=== PATIENT | female | born 1950 | race Caucasian/White ===

== ENCOUNTER 2021-06-27 13:43 | Inpatient (IN) | payer OTHER, SELFPAY ==
[~2021-06-27] VITALS: Ht 149.9 cm; Wt 66.7 kg
[2021-06-27 14:00] VITALS: BP_SYST 132
[2021-06-27] MEDS ORDERED: HYDR-4038 PO (16:29)
[2021-06-27] MEDS ORDERED: GABA-529 PO (16:29)
[2021-06-27] MEDS ORDERED: SSNOVOLOG SUBCUT (16:29)
[2021-06-27] MEDS ORDERED: ATOR40TA68 PO (16:29)
[2021-06-27] MEDS ORDERED: POTA10TA PO (16:29)
[2021-06-27] MEDS ORDERED: BENA1TAB19 PO (16:29)
[2021-06-27] MEDS ORDERED: FURO-149 PO (16:29)
[2021-06-27] MEDS ORDERED: ASA81 PO (16:29)
[2021-06-27] MEDS ORDERED: TICA90TA PO (16:29)
[2021-06-27] MEDS ORDERED: CARV12.548 PO (16:29)
[2021-06-27] MEDS ORDERED: METF-518 PO (16:29)
[2021-06-27] MEDS ORDERED: INSU300I SQ (16:29)
[2021-06-27] MEDS ORDERED: PRO40 PO (16:29)
[2021-06-27] MEDS ORDERED: NACL 0.9% 1,000 ML IV SCH (17:00)
[2021-06-27] MEDS ORDERED: DEXTROSE 50% JECT 50 ML DISP.SYRIN IVP PRN (17:00)
[2021-06-27] MEDS ORDERED: PANTOPRAZOLE SODIUM 40 MG/VIAL (PROTONIX) IVP ONE (19:15)
[2021-06-27 19:17] LABS: BASOPHILS % (AUTO) 0.9 % (0.0-2.0); EOSINOPHILS # (AUTO) 0.2 K/uL (0.0-0.4); EOSINOPHILS % (AUTO) 3.6 % (0.0-4.0); HEMATOCRIT 27.9 % (36-48); HEMOGLOBIN 9.5 g/dL (12.0-16.0); LYMPHOCYTES # (AUTO) 0.9 K/uL (1.0-5.5); LYMPHOCYTES % (AUTO) 16.7 % (20.5-51.5); MEAN CORPUSCULAR HEMOGLOBIN 29 pg (27-31); MEAN CORPUSCULAR HGB CONC 34 % (32-36); MEAN CORPUSCULAR VOLUME 83 fL (79.0-98.0); MONOCYTES # (AUTO) 0.5 K/uL (0.0-1.0); MONOCYTES % (AUTO) 9.8 % (1.7-9.3); NEUTROPHILS # (AUTO) 3.6 K/uL (1.8-7.7); PLATELET COUNT (AUTO) 327 K/uL (130-430); RED BLOOD CELL COUNT(AUTO) 3.35 MIL/uL (4.2-6.2); RED CELL DISTRIBUTION WIDTH 20.1 % (9.0-15.0); WHITE BLOOD COUNT (AUTO) 5.2 K/uL (4.8-10.8)
[2021-06-27 20:01] LABS: TOTAL IRON BIND. CAPACITY 293 ug/dL (250-450)
[2021-06-27 20:14] LABS: ALANINE AMINOTRANSFERASE 21 U/L (12-78); ALBUMIN 3.1 g/dL (3.4-4.8); ANION GAP 10 (5-15); ASPARTATE AMINOTRANSFERASE 19 U/L (10-37); CALCIUM 8.8 mg/dL (8.4-11.0); CHLORIDE 99 mmol/L (98-107); CREATININE 1.24 mg/dL (0.55-1.30); GLUCOSE 172 mg/dL (70-99); POTASSIUM 3.6 mmol/L (3.5-5.1); SODIUM SERUM 139 mmol/L (136-145); THYROID STIMULATING HORMONE 0.91 uIu/mL (0.36-3.74); TOTAL BILIRUBIN 0.2 mg/dL (0.0-1.0); UREA NITROGEN, BLOOD 25 mg/dL (8-21)
[2021-06-27 20:15] LABS: INR 1.1 (0.8-1.2); PROTHROMBIN TIME 11.9 SECS (9.5-12.5)
[2021-06-27 21:15] VITALS: BP_SYST 132
[2021-06-27] MEDS: GABAPENTIN 300 MG CAPSULE PO SCH (22:47)
[2021-06-27] MEDS: CARVEDILOL 12.5 MG TABLET (COREG) PO SCH (22:49)
[2021-06-27] MEDS: INSULIN REGULAR, HUMAN 100 UNITS/ML, 10 ML VIAL (humuLIN R) SUBCUT PRN (23:37)
[2021-06-27] MEDS: 0.45% NACL 1,000 ML IV SCH (23:56)
[2021-06-28 01:40] VITALS: BP_SYST 131
[2021-06-28 07:14] LABS: BASOPHILS % (AUTO) 0.9 % (0.0-2.0); EOSINOPHILS # (AUTO) 0.2 K/uL (0.0-0.4); HEMATOCRIT 25.9 % (36-48); HEMOGLOBIN 8.8 g/dL (12.0-16.0); LYMPHOCYTES # (AUTO) 0.8 K/uL (1.0-5.5); LYMPHOCYTES % (AUTO) 15.7 % (20.5-51.5); MEAN CORPUSCULAR HEMOGLOBIN 28 pg (27-31); MEAN CORPUSCULAR HGB CONC 34 % (32-36); MEAN CORPUSCULAR VOLUME 84 fL (79.0-98.0); MONOCYTES # (AUTO) 0.5 K/uL (0.0-1.0); MONOCYTES % (AUTO) 9.8 % (1.7-9.3); NEUTROPHILS # (AUTO) 3.7 K/uL (1.8-7.7); NEUTROPHILS % (AUTO) 70.6 % (40.0-70.0); PLATELET COUNT (AUTO) 279 K/uL (130-430); RED BLOOD CELL COUNT(AUTO) 3.08 MIL/uL (4.2-6.2); RED CELL DISTRIBUTION WIDTH 19.9 % (9.0-15.0); WHITE BLOOD COUNT (AUTO) 5.3 K/uL (4.8-10.8)
[2021-06-28] MEDS ORDERED: METF-380 PO (07:27)
[2021-06-28 08:15] LABS: ANION GAP 9 (5-15); CALCIUM 8.6 mg/dL (8.4-11.0); CHLORIDE 100 mmol/L (98-107); GLUCOSE 130 mg/dL (70-99); POTASSIUM 3.6 mmol/L (3.5-5.1); SODIUM SERUM 140 mmol/L (136-145); UREA NITROGEN, BLOOD 23 mg/dL (8-21)
[2021-06-28 08:45] VITALS: BP_SYST 144
[2021-06-28] MEDS: PANTOPRAZOLE SODIUM 40 MG/VIAL (PROTONIX) IVP SCH ×2 (08:45→22:00)
[2021-06-28] MEDS: ATORVASTATIN 20 MG TABLET PO SCH (08:46)
[2021-06-28] MEDS: hydrALAZINE HCL 25 MG TABLET PO SCH (08:46)
[2021-06-28] MEDS: CARVEDILOL 12.5 MG TABLET (COREG) PO SCH ×2 (08:47→22:00)
[2021-06-28] MEDS: POTASSIUM CHLORIDE 10 MEQ TAB.PRT.SR PO SCH (08:47)
[2021-06-28] MEDS: FUROSEMIDE 40 MG TABLET PO SCH (08:47)
[2021-06-28] MEDS: GABAPENTIN 300 MG CAPSULE PO SCH ×2 (08:47→21:59)
[2021-06-28] MEDS: lisinopriL 20 MG TABLET PO SCH (08:48)
[2021-06-28] MEDS: INSULIN REGULAR, HUMAN 100 UNITS/ML, 10 ML VIAL (humuLIN R) SUBCUT PRN ×3 (11:32→22:53)
[2021-06-28 12:58] VITALS: BP_SYST 138
[2021-06-28] MEDS: guaiFENesin/DEXTROMETHORPHAN 10 ML UDC PO PRN (13:49)
[2021-06-28 14:11] LABS: BILIRUBIN,URINE NEGATIVE (NEGATIVE); BLOOD, URINE NEGATIVE (NEGATIVE); CLARITY/URINE CLEAR (CLEAR); COLOR,URINE YELLOW (YELLOW); GLUCOSE,URINE NEGATIVE (NEGATIVE); KETONES,URINE NEGATIVE (NEGATIVE); LEUKOCYTE ESTERASE ,URINE NEGATIVE (NEGATIVE); NITRITE, URINE NEGATIVE (NEGATIVE); PROTEIN URINE NEGATIVE (NEGATIVE); UROBILINOGEN,URINE 0.2 (0.2-1.0)
[2021-06-28] MEDS ORDERED: IOHEXOL 350 mgI/mL, 150 ML INFUS..BTL IV ONE (15:10)
[2021-06-28 16:45] VITALS: BP_SYST 140
[2021-06-28 20:56] VITALS: BP_SYST 140
[2021-06-28] MEDS: 0.45% NACL 1,000 ML IV SCH (22:15)
[2021-06-29] MEDS ORDERED: ACETAMINOPHEN 325 MG TABLET PO PRN (01:00)
[2021-06-29 01:26] VITALS: BP_SYST 128
[2021-06-29] MEDS: INSULIN REGULAR, HUMAN 100 UNITS/ML, 10 ML VIAL (humuLIN R) SUBCUT PRN ×4 (06:32→22:08)
[2021-06-29 07:29] LABS: BASOPHILS # (AUTO) 0.1 K/uL (0.0-0.2); BASOPHILS % (AUTO) 0.9 % (0.0-2.0); EOSINOPHILS # (AUTO) 0.2 K/uL (0.0-0.4); EOSINOPHILS % (AUTO) 2.6 % (0.0-4.0); HEMATOCRIT 26.5 % (36-48); LYMPHOCYTES # (AUTO) 0.9 K/uL (1.0-5.5); LYMPHOCYTES % (AUTO) 14.1 % (20.5-51.5); MEAN CORPUSCULAR HEMOGLOBIN 29 pg (27-31); MEAN CORPUSCULAR HGB CONC 34 % (32-36); MEAN CORPUSCULAR VOLUME 85 fL (79.0-98.0); MONOCYTES # (AUTO) 0.6 K/uL (0.0-1.0); MONOCYTES % (AUTO) 9.3 % (1.7-9.3); NEUTROPHILS # (AUTO) 4.8 K/uL (1.8-7.7); NEUTROPHILS % (AUTO) 73.1 % (40.0-70.0); PLATELET COUNT (AUTO) 292 K/uL (130-430); RED BLOOD CELL COUNT(AUTO) 3.14 MIL/uL (4.2-6.2); WHITE BLOOD COUNT (AUTO) 6.6 K/uL (4.8-10.8)
[2021-06-29 08:08] VITALS: BP_SYST 140
[2021-06-29] MEDS ORDERED: ASPIRIN 81 MG TAB.CHEW PO SCH (09:00)
[2021-06-29] MEDS: PANTOPRAZOLE SODIUM 40 MG/VIAL (PROTONIX) IVP SCH ×2 (09:30→22:01)
[2021-06-29] MEDS: hydrALAZINE HCL 25 MG TABLET PO SCH (09:31)
[2021-06-29] MEDS: FUROSEMIDE 40 MG TABLET PO SCH (09:31)
[2021-06-29] MEDS: POTASSIUM CHLORIDE 10 MEQ TAB.PRT.SR PO SCH (09:32)
[2021-06-29] MEDS: CARVEDILOL 12.5 MG TABLET (COREG) PO SCH ×2 (09:32→21:59)
[2021-06-29] MEDS: ATORVASTATIN 20 MG TABLET PO SCH (09:32)
[2021-06-29] MEDS: GABAPENTIN 300 MG CAPSULE PO SCH ×2 (09:32→21:56)
[2021-06-29] MEDS: lisinopriL 20 MG TABLET PO SCH (09:32)
[2021-06-29 11:26] VITALS: BP_SYST 130
[2021-06-29 15:09] VITALS: BP_SYST 121
[2021-06-29] MEDS ORDERED: SULFAMETHOXAZOLE/TRIMETHOPR DS 1 TABLET PO ONE (16:15)
[2021-06-29] MEDS: ACYCLOVIR 400 MG TABLET PO SCH ×2 (17:21→21:55)
[2021-06-29] MEDS: guaiFENesin/DEXTROMETHORPHAN 10 ML UDC PO PRN (17:26)
[2021-06-29 20:15] VITALS: BP_SYST 127
[2021-06-29] MEDS ORDERED: SULFAMETHOXAZOLE/TRIMETHOPR DS 1 TABLET PO SCH (21:00)
[2021-06-30 00:30] VITALS: BP_SYST 124
[2021-06-30] MEDS: 0.45% NACL 1,000 ML IV SCH (01:23)
[2021-06-30] MEDS: ACYCLOVIR 400 MG TABLET PO SCH ×5 (06:21→21:44)
[2021-06-30] MEDS: INSULIN REGULAR, HUMAN 100 UNITS/ML, 10 ML VIAL (humuLIN R) SUBCUT PRN ×4 (06:29→22:02)
[2021-06-30 06:53] LABS: BASOPHILS % (AUTO) 0.8 % (0.0-2.0); EOSINOPHILS # (AUTO) 0.2 K/uL (0.0-0.4); EOSINOPHILS % (AUTO) 3.1 % (0.0-4.0); HEMATOCRIT 25.3 % (36-48); HEMOGLOBIN 8.6 g/dL (12.0-16.0); LYMPHOCYTES % (AUTO) 17.7 % (20.5-51.5); MEAN CORPUSCULAR HEMOGLOBIN 29 pg (27-31); MEAN CORPUSCULAR HGB CONC 34 % (32-36); MEAN CORPUSCULAR VOLUME 85 fL (79.0-98.0); MONOCYTES # (AUTO) 0.6 K/uL (0.0-1.0); MONOCYTES % (AUTO) 9.9 % (1.7-9.3); NEUTROPHILS # (AUTO) 3.9 K/uL (1.8-7.7); NEUTROPHILS % (AUTO) 68.5 % (40.0-70.0); PLATELET COUNT (AUTO) 299 K/uL (130-430); RED BLOOD CELL COUNT(AUTO) 2.99 MIL/uL (4.2-6.2); RED CELL DISTRIBUTION WIDTH 19.5 % (9.0-15.0); WHITE BLOOD COUNT (AUTO) 5.6 K/uL (4.8-10.8)
[2021-06-30 07:09] LABS: ALANINE AMINOTRANSFERASE 16 U/L (12-78); ALBUMIN 2.6 g/dL (3.4-4.8); ANION GAP 6 (5-15); ASPARTATE AMINOTRANSFERASE 16 U/L (10-37); CALCIUM 8.5 mg/dL (8.4-11.0); CHLORIDE 96 mmol/L (98-107); CREATININE 1.11 mg/dL (0.55-1.30); GLUCOSE 180 mg/dL (70-99); POTASSIUM 4.4 mmol/L (3.5-5.1); SODIUM SERUM 132 mmol/L (136-145); TOTAL BILIRUBIN < 0.1 mg/dL (0.0-1.0); UREA NITROGEN, BLOOD 30 mg/dL (8-21)
[2021-06-30 08:00] VITALS: BP_SYST 135
[2021-06-30] MEDS ORDERED: SULFAMETHOXAZOLE/TRIMETHOPR DS 1 TABLET PO ONE (09:45)
[2021-06-30] MEDS: ATORVASTATIN 20 MG TABLET PO SCH (10:03)
[2021-06-30] MEDS: CARVEDILOL 12.5 MG TABLET (COREG) PO SCH ×2 (10:03→21:45)
[2021-06-30] MEDS: GABAPENTIN 300 MG CAPSULE PO SCH ×2 (10:04→21:45)
[2021-06-30] MEDS: lisinopriL 20 MG TABLET PO SCH (10:04)
[2021-06-30] MEDS: FUROSEMIDE 40 MG TABLET PO SCH (10:05)
[2021-06-30] MEDS: hydrALAZINE HCL 25 MG TABLET PO SCH (10:05)
[2021-06-30] MEDS: POTASSIUM CHLORIDE 10 MEQ TAB.PRT.SR PO SCH (10:05)
[2021-06-30] MEDS: PANTOPRAZOLE SODIUM 40 MG/VIAL (PROTONIX) IVP SCH ×2 (10:05→21:48)
[2021-06-30 12:00] VITALS: BP_SYST 138
[2021-06-30] MEDS: cefTRIAXone 1 GM in D5W 50 ML IV SCH (12:42)
[2021-06-30] MEDS: AZITHROMYCIN 500 MG in NS 250 ML IV SCH (12:42)
[2021-06-30 16:53] VITALS: BP_SYST 115
[2021-06-30 20:30] VITALS: BP_SYST 131
[2021-06-30] MEDS: SULFAMETHOXAZOLE/TRIMETHOPR DS 1 TABLET PO SCH (21:45)
[2021-07-01 01:21] VITALS: BP_SYST 132
[2021-07-01] MEDS: INSULIN REGULAR, HUMAN 100 UNITS/ML, 10 ML VIAL (humuLIN R) SUBCUT PRN ×4 (07:05→21:46)
[2021-07-01] MEDS: ACYCLOVIR 400 MG TABLET PO SCH ×5 (07:07→21:42)
[2021-07-01 08:00] VITALS: BP_SYST 148
[2021-07-01] MEDS: PANTOPRAZOLE SODIUM 40 MG/VIAL (PROTONIX) IVP SCH ×2 (10:05→21:44)
[2021-07-01] MEDS: ATORVASTATIN 20 MG TABLET PO SCH (10:05)
[2021-07-01] MEDS: GABAPENTIN 300 MG CAPSULE PO SCH ×2 (10:05→21:43)
[2021-07-01] MEDS: POTASSIUM CHLORIDE 10 MEQ TAB.PRT.SR PO SCH (10:05)
[2021-07-01] MEDS: FUROSEMIDE 40 MG TABLET PO SCH (10:06)
[2021-07-01] MEDS: hydrALAZINE HCL 25 MG TABLET PO SCH (10:07)
[2021-07-01] MEDS: CARVEDILOL 12.5 MG TABLET (COREG) PO SCH ×2 (10:07→21:43)
[2021-07-01] MEDS: lisinopriL 20 MG TABLET PO SCH (10:08)
[2021-07-01] MEDS: SULFAMETHOXAZOLE/TRIMETHOPR DS 1 TABLET PO SCH ×2 (10:17→21:42)
[2021-07-01 12:23] LABS: BASOPHILS # (AUTO) 0.1 K/uL (0.0-0.2); EOSINOPHILS # (AUTO) 0.1 K/uL (0.0-0.4); EOSINOPHILS % (AUTO) 2.2 % (0.0-4.0); HEMATOCRIT 28.4 % (36-48); HEMOGLOBIN 9.6 g/dL (12.0-16.0); LYMPHOCYTES % (AUTO) 17.1 % (20.5-51.5); MEAN CORPUSCULAR HEMOGLOBIN 29 pg (27-31); MEAN CORPUSCULAR HGB CONC 34 % (32-36); MEAN CORPUSCULAR VOLUME 85 fL (79.0-98.0); MONOCYTES # (AUTO) 0.5 K/uL (0.0-1.0); MONOCYTES % (AUTO) 8.5 % (1.7-9.3); NEUTROPHILS # (AUTO) 4.1 K/uL (1.8-7.7); NEUTROPHILS % (AUTO) 71.2 % (40.0-70.0); PLATELET COUNT (AUTO) 339 K/uL (130-430); RED BLOOD CELL COUNT(AUTO) 3.34 MIL/uL (4.2-6.2); RED CELL DISTRIBUTION WIDTH 19.6 % (9.0-15.0); WHITE BLOOD COUNT (AUTO) 5.8 K/uL (4.8-10.8)
[2021-07-01] MEDS: cefTRIAXone 1 GM in D5W 50 ML IV SCH (13:10)
[2021-07-01] MEDS: AZITHROMYCIN 500 MG in NS 250 ML IV SCH (13:10)
[2021-07-01 19:00] VITALS: BP_SYST 135
[2021-07-02 00:15] VITALS: BP_SYST 111
[2021-07-02 06:53] LABS: BASOPHILS % (AUTO) 1.2 % (0.0-2.0); EOSINOPHILS # (AUTO) 0.1 K/uL (0.0-0.4); EOSINOPHILS % (AUTO) 3.1 % (0.0-4.0); HEMATOCRIT 26.5 % (36-48); LYMPHOCYTES # (AUTO) 0.9 K/uL (1.0-5.5); MEAN CORPUSCULAR HEMOGLOBIN 29 pg (27-31); MEAN CORPUSCULAR HGB CONC 34 % (32-36); MEAN CORPUSCULAR VOLUME 85 fL (79.0-98.0); MONOCYTES # (AUTO) 0.5 K/uL (0.0-1.0); MONOCYTES % (AUTO) 11.2 % (1.7-9.3); NEUTROPHILS # (AUTO) 2.7 K/uL (1.8-7.7); NEUTROPHILS % (AUTO) 63.5 % (40.0-70.0); PLATELET COUNT (AUTO) 295 K/uL (130-430); RED BLOOD CELL COUNT(AUTO) 3.13 MIL/uL (4.2-6.2); RED CELL DISTRIBUTION WIDTH 20.7 % (9.0-15.0); RETICULOCYTE COUNT 4.7 % (0.5-1.5); WHITE BLOOD COUNT (AUTO) 4.3 K/uL (4.8-10.8)
[2021-07-02] MEDS: ACYCLOVIR 400 MG TABLET PO SCH ×5 (07:06→21:56)
[2021-07-02 08:00] VITALS: BP_SYST 147
[2021-07-02] MEDS: INSULIN REGULAR, HUMAN 100 UNITS/ML, 10 ML VIAL (humuLIN R) SUBCUT PRN ×3 (08:04→17:51)
[2021-07-02 08:23] LABS: ALANINE AMINOTRANSFERASE 14 U/L (12-78); ALBUMIN 2.9 g/dL (3.4-4.8); ANION GAP 6 (5-15); ASPARTATE AMINOTRANSFERASE 15 U/L (10-37); CALCIUM 8.8 mg/dL (8.4-11.0); CHLORIDE 99 mmol/L (98-107); CREATININE 1.25 mg/dL (0.55-1.30); GLUCOSE 221 mg/dL (70-99); POTASSIUM 4.9 mmol/L (3.5-5.1); SODIUM SERUM 133 mmol/L (136-145); TOTAL BILIRUBIN 0.1 mg/dL (0.0-1.0); UREA NITROGEN, BLOOD 28 mg/dL (8-21)
[2021-07-02] MEDS: FUROSEMIDE 40 MG TABLET PO SCH (09:39)
[2021-07-02] MEDS: lisinopriL 20 MG TABLET PO SCH (09:39)
[2021-07-02] MEDS: POTASSIUM CHLORIDE 10 MEQ TAB.PRT.SR PO SCH (09:39)
[2021-07-02] MEDS: CARVEDILOL 12.5 MG TABLET (COREG) PO SCH ×2 (09:39→21:56)
[2021-07-02] MEDS: ATORVASTATIN 20 MG TABLET PO SCH (09:39)
[2021-07-02] MEDS: GABAPENTIN 300 MG CAPSULE PO SCH ×2 (09:39→21:56)
[2021-07-02] MEDS: PANTOPRAZOLE SODIUM 40 MG/VIAL (PROTONIX) IVP SCH ×2 (09:40→21:56)
[2021-07-02] MEDS: SULFAMETHOXAZOLE/TRIMETHOPR DS 1 TABLET PO SCH ×2 (09:40→21:55)
[2021-07-02] MEDS: hydrALAZINE HCL 25 MG TABLET PO SCH (09:40)
[2021-07-02 11:24] VITALS: BP_SYST 114
[2021-07-02] MEDS: cefTRIAXone 1 GM in D5W 50 ML IV SCH (13:00)
[2021-07-02] MEDS: AZITHROMYCIN 500 MG in NS 250 ML IV SCH (13:06)
[2021-07-02 15:40] VITALS: BP_SYST 116
[2021-07-02 19:00] VITALS: BP_SYST 128
[2021-07-02] MEDS ORDERED: ENOXAPARIN SODIUM 40 MG/0.4 ML SYRINGE SUBCUT ONE (20:00)
[2021-07-03] VITALS: BP_SYST 130
[2021-07-03 04:00] VITALS: BP_SYST 134
[2021-07-03] MEDS: ACYCLOVIR 400 MG TABLET PO SCH ×5 (06:09→21:13)
[2021-07-03 07:37] LABS: BASOPHILS # (AUTO) 0.1 K/uL (0.0-0.2); BASOPHILS % (AUTO) 1.3 % (0.0-2.0); EOSINOPHILS # (AUTO) 0.1 K/uL (0.0-0.4); EOSINOPHILS % (AUTO) 2.9 % (0.0-4.0); HEMATOCRIT 27.3 % (36-48); HEMOGLOBIN 9.2 g/dL (12.0-16.0); LYMPHOCYTES # (AUTO) 1.1 K/uL (1.0-5.5); LYMPHOCYTES % (AUTO) 26.1 % (20.5-51.5); MEAN CORPUSCULAR HEMOGLOBIN 29 pg (27-31); MEAN CORPUSCULAR HGB CONC 34 % (32-36); MEAN CORPUSCULAR VOLUME 84 fL (79.0-98.0); MONOCYTES # (AUTO) 0.5 K/uL (0.0-1.0); MONOCYTES % (AUTO) 11.1 % (1.7-9.3); NEUTROPHILS # (AUTO) 2.5 K/uL (1.8-7.7); NEUTROPHILS % (AUTO) 58.6 % (40.0-70.0); PLATELET COUNT (AUTO) 311 K/uL (130-430); RED BLOOD CELL COUNT(AUTO) 3.24 MIL/uL (4.2-6.2); RED CELL DISTRIBUTION WIDTH 20.3 % (9.0-15.0); WHITE BLOOD COUNT (AUTO) 4.2 K/uL (4.8-10.8)
[2021-07-03 08:27] VITALS: BP_SYST 137
[2021-07-03] MEDS: SULFAMETHOXAZOLE/TRIMETHOPR DS 1 TABLET PO SCH ×2 (08:32→21:13)
[2021-07-03] MEDS: hydrALAZINE HCL 25 MG TABLET PO SCH (08:33)
[2021-07-03] MEDS: ATORVASTATIN 20 MG TABLET PO SCH (08:33)
[2021-07-03] MEDS: FUROSEMIDE 40 MG TABLET PO SCH (08:33)
[2021-07-03] MEDS: POTASSIUM CHLORIDE 10 MEQ TAB.PRT.SR PO SCH (08:34)
[2021-07-03] MEDS: CARVEDILOL 12.5 MG TABLET (COREG) PO SCH ×2 (08:34→21:14)
[2021-07-03] MEDS: ENOXAPARIN SODIUM 40 MG/0.4 ML SYRINGE SUBCUT SCH (08:41)
[2021-07-03] MEDS: GABAPENTIN 300 MG CAPSULE PO SCH ×2 (12:27→21:13)
[2021-07-03] MEDS: PANTOPRAZOLE SODIUM 40 MG/VIAL (PROTONIX) IVP SCH ×2 (12:27→21:14)
[2021-07-03] MEDS: cefTRIAXone 1 GM in D5W 50 ML IV SCH (12:28)
[2021-07-03] MEDS: lisinopriL 20 MG TABLET PO SCH (12:28)
[2021-07-03] MEDS: INSULIN REGULAR, HUMAN 100 UNITS/ML, 10 ML VIAL (humuLIN R) SUBCUT PRN ×3 (12:30→21:21)
[2021-07-03 12:33] VITALS: BP_SYST 135
[2021-07-03] MEDS: AZITHROMYCIN 500 MG in NS 250 ML IV SCH (12:36)
[2021-07-03] MEDS: metFORMIN HCL 500 MG TABLET PO SCH (17:13)
[2021-07-03 18:09] VITALS: BP_SYST 129
[2021-07-03 20:00] VITALS: BP_SYST 134
[2021-07-04] VITALS: BP_SYST 116
[2021-07-04] MEDS: ACYCLOVIR 400 MG TABLET PO SCH ×5 (06:22→20:53)
[2021-07-04] MEDS: INSULIN REGULAR, HUMAN 100 UNITS/ML, 10 ML VIAL (humuLIN R) SUBCUT PRN ×4 (06:26→21:04)
[2021-07-04 07:21] LABS: BASOPHILS # (AUTO) 0.1 K/uL (0.0-0.2); BASOPHILS % (AUTO) 1.3 % (0.0-2.0); EOSINOPHILS # (AUTO) 0.1 K/uL (0.0-0.4); HEMATOCRIT 25.9 % (36-48); LYMPHOCYTES # (AUTO) 1.1 K/uL (1.0-5.5); LYMPHOCYTES % (AUTO) 22.9 % (20.5-51.5); MEAN CORPUSCULAR HEMOGLOBIN 29 pg (27-31); MEAN CORPUSCULAR HGB CONC 35 % (32-36); MEAN CORPUSCULAR VOLUME 84 fL (79.0-98.0); MONOCYTES # (AUTO) 0.5 K/uL (0.0-1.0); MONOCYTES % (AUTO) 10.7 % (1.7-9.3); NEUTROPHILS # (AUTO) 3.1 K/uL (1.8-7.7); NEUTROPHILS % (AUTO) 62.1 % (40.0-70.0); PLATELET COUNT (AUTO) 287 K/uL (130-430); RED BLOOD CELL COUNT(AUTO) 3.08 MIL/uL (4.2-6.2); RED CELL DISTRIBUTION WIDTH 20.8 % (9.0-15.0); WHITE BLOOD COUNT (AUTO) 4.9 K/uL (4.8-10.8)
[2021-07-04 07:57] LABS: ANION GAP 6 (5-15); CALCIUM 8.8 mg/dL (8.4-11.0); CHLORIDE 98 mmol/L (98-107); CREATININE 1.28 mg/dL (0.55-1.30); GLUCOSE 216 mg/dL (70-99); SODIUM SERUM 132 mmol/L (136-145); UREA NITROGEN, BLOOD 33 mg/dL (8-21)
[2021-07-04] MEDS: metFORMIN HCL 500 MG TABLET PO SCH ×2 (08:00→18:16)
[2021-07-04] MEDS: ENOXAPARIN SODIUM 40 MG/0.4 ML SYRINGE SUBCUT SCH (09:00)
[2021-07-04] MEDS: hydrALAZINE HCL 25 MG TABLET PO SCH (09:00)
[2021-07-04] MEDS: CARVEDILOL 12.5 MG TABLET (COREG) PO SCH ×2 (09:00→20:54)
[2021-07-04] MEDS: PANTOPRAZOLE SODIUM 40 MG/VIAL (PROTONIX) IVP SCH ×2 (09:00→20:54)
[2021-07-04] MEDS: lisinopriL 20 MG TABLET PO SCH (09:00)
[2021-07-04] MEDS: FUROSEMIDE 40 MG TABLET PO SCH (09:00)
[2021-07-04] MEDS: SULFAMETHOXAZOLE/TRIMETHOPR DS 1 TABLET PO SCH ×2 (09:00→20:53)
[2021-07-04] MEDS: GABAPENTIN 300 MG CAPSULE PO SCH ×2 (09:00→20:53)
[2021-07-04] MEDS: ATORVASTATIN 20 MG TABLET PO SCH (09:00)
[2021-07-04 12:34] VITALS: BP_SYST 122
[2021-07-04] MEDS: AZITHROMYCIN 500 MG in NS 250 ML IV SCH (12:46)
[2021-07-04] MEDS: cefTRIAXone 1 GM in D5W 50 ML IV SCH (14:00)
[2021-07-04 16:45] VITALS: BP_SYST 126
[2021-07-04 20:00] VITALS: BP_SYST 125
[2021-07-05] VITALS: BP_SYST 122
[2021-07-05] MEDS: INSULIN REGULAR, HUMAN 100 UNITS/ML, 10 ML VIAL (humuLIN R) SUBCUT PRN ×4 (06:52→20:38)
[2021-07-05 07:09] LABS: BASOPHILS # (AUTO) 0.1 K/uL (0.0-0.2); BASOPHILS % (AUTO) 1.3 % (0.0-2.0); EOSINOPHILS # (AUTO) 0.2 K/uL (0.0-0.4); HEMATOCRIT 26.6 % (36-48); HEMOGLOBIN 9.1 g/dL (12.0-16.0); LYMPHOCYTES # (AUTO) 1.3 K/uL (1.0-5.5); LYMPHOCYTES % (AUTO) 27.8 % (20.5-51.5); MEAN CORPUSCULAR HEMOGLOBIN 29 pg (27-31); MEAN CORPUSCULAR HGB CONC 34 % (32-36); MEAN CORPUSCULAR VOLUME 84 fL (79.0-98.0); MONOCYTES # (AUTO) 0.5 K/uL (0.0-1.0); MONOCYTES % (AUTO) 10.8 % (1.7-9.3); NEUTROPHILS # (AUTO) 2.7 K/uL (1.8-7.7); NEUTROPHILS % (AUTO) 56.1 % (40.0-70.0); PLATELET COUNT (AUTO) 294 K/uL (130-430); RED BLOOD CELL COUNT(AUTO) 3.18 MIL/uL (4.2-6.2); RED CELL DISTRIBUTION WIDTH 20.4 % (9.0-15.0); WHITE BLOOD COUNT (AUTO) 4.8 K/uL (4.8-10.8)
[2021-07-05 07:11] LABS: ANION GAP 5 (5-15); CHLORIDE 96 mmol/L (98-107); CREATININE 1.38 mg/dL (0.55-1.30); GLUCOSE 204 mg/dL (70-99); POTASSIUM 5.3 mmol/L (3.5-5.1); SODIUM SERUM 129 mmol/L (136-145); UREA NITROGEN, BLOOD 34 mg/dL (8-21)
[2021-07-05 08:00] VITALS: BP_SYST 136
[2021-07-05] MEDS: GABAPENTIN 300 MG CAPSULE PO SCH ×2 (08:33→20:36)
[2021-07-05] MEDS: CARVEDILOL 12.5 MG TABLET (COREG) PO SCH ×2 (08:34→20:36)
[2021-07-05] MEDS: ACYCLOVIR 400 MG TABLET PO SCH ×4 (08:35→20:36)
[2021-07-05] MEDS: hydrALAZINE HCL 25 MG TABLET PO SCH (08:35)
[2021-07-05] MEDS: SULFAMETHOXAZOLE/TRIMETHOPR DS 1 TABLET PO SCH (08:36)
[2021-07-05] MEDS: ENOXAPARIN SODIUM 40 MG/0.4 ML SYRINGE SUBCUT SCH (08:37)
[2021-07-05] MEDS: metFORMIN HCL 500 MG TABLET PO SCH ×2 (08:38→17:38)
[2021-07-05] MEDS: ATORVASTATIN 20 MG TABLET PO SCH (08:38)
[2021-07-05] MEDS: PANTOPRAZOLE SODIUM 40 MG/VIAL (PROTONIX) IVP SCH ×2 (08:42→20:36)
[2021-07-05] MEDS ORDERED: NACL 0.9% 1,000 ML IV SCH (09:15)
[2021-07-05] MEDS ORDERED: SODIUM POLYSTYRENE SULFONATE 15 GM/60 ML UDBTL PO ONE (11:45)
[2021-07-05 12:00] VITALS: BP_SYST 135
[2021-07-05] MEDS: NACL 0.9% 1,000 ML IV SCH (12:21)
[2021-07-05] MEDS: cefTRIAXone 1 GM in D5W 50 ML IV SCH (13:50)
[2021-07-05 16:00] VITALS: BP_SYST 149
[2021-07-05 20:32] VITALS: BP_SYST 135
[2021-07-06 00:45] VITALS: BP_SYST 127
[2021-07-06] MEDS: NACL 0.9% 1,000 ML IV SCH (02:13)
[2021-07-06] MEDS: INSULIN REGULAR, HUMAN 100 UNITS/ML, 10 ML VIAL (humuLIN R) SUBCUT PRN ×4 (06:31→22:31)
[2021-07-06 08:00] VITALS: BP_SYST 147
[2021-07-06 08:22] LABS: ANION GAP 9 (5-15); CALCIUM 8.7 mg/dL (8.4-11.0); CHLORIDE 99 mmol/L (98-107); GLUCOSE 226 mg/dL (70-99); SODIUM SERUM 134 mmol/L (136-145); UREA NITROGEN, BLOOD 30 mg/dL (8-21)
[2021-07-06] MEDS: ENOXAPARIN SODIUM 40 MG/0.4 ML SYRINGE SUBCUT SCH (09:46)
[2021-07-06] MEDS: PANTOPRAZOLE SODIUM 40 MG/VIAL (PROTONIX) IVP SCH ×2 (09:47→22:28)
[2021-07-06] MEDS: CARVEDILOL 12.5 MG TABLET (COREG) PO SCH ×2 (09:48→22:29)
[2021-07-06] MEDS: GABAPENTIN 300 MG CAPSULE PO SCH ×2 (09:48→22:29)
[2021-07-06] MEDS: ACYCLOVIR 400 MG TABLET PO SCH ×3 (09:48→18:00)
[2021-07-06] MEDS: hydrALAZINE HCL 25 MG TABLET PO SCH (09:49)
[2021-07-06] MEDS: metFORMIN HCL 500 MG TABLET PO SCH ×2 (09:49→18:00)
[2021-07-06] MEDS: ATORVASTATIN 20 MG TABLET PO SCH (10:44)
[2021-07-06] MEDS: cefTRIAXone 1 GM in D5W 50 ML IV SCH (12:34)
[2021-07-06 16:00] VITALS: BP_SYST 141
[2021-07-06] MEDS: MEPRON PO SCH (18:00)
[2021-07-06 22:21] VITALS: BP_SYST 146
[2021-07-07 00:05] VITALS: BP_SYST 140
[2021-07-07] MEDS: INSULIN REGULAR, HUMAN 100 UNITS/ML, 10 ML VIAL (humuLIN R) SUBCUT PRN ×3 (06:53→23:32)
[2021-07-07 07:55] LABS: ANION GAP 9 (5-15); CHLORIDE 98 mmol/L (98-107); GLUCOSE 173 mg/dL (70-99); POTASSIUM 4.5 mmol/L (3.5-5.1); SODIUM SERUM 132 mmol/L (136-145); UREA NITROGEN, BLOOD 23 mg/dL (8-21)
[2021-07-07 08:23] VITALS: BP_SYST 139
[2021-07-07 08:35] LABS: EOSINOPHILS # (AUTO) 0.1 K/uL (0.0-0.4); EOSINOPHILS % (AUTO) 2.7 % (0.0-4.0); HEMATOCRIT 28.1 % (36-48); HEMOGLOBIN 9.4 g/dL (12.0-16.0); LYMPHOCYTES % (AUTO) 21.4 % (20.5-51.5); MEAN CORPUSCULAR HEMOGLOBIN 29 pg (27-31); MEAN CORPUSCULAR HGB CONC 34 % (32-36); MEAN CORPUSCULAR VOLUME 86 fL (79.0-98.0); MONOCYTES # (AUTO) 0.4 K/uL (0.0-1.0); MONOCYTES % (AUTO) 8.3 % (1.7-9.3); NEUTROPHILS # (AUTO) 3.2 K/uL (1.8-7.7); NEUTROPHILS % (AUTO) 66.6 % (40.0-70.0); PLATELET COUNT (AUTO) 278 K/uL (130-430); RED BLOOD CELL COUNT(AUTO) 3.29 MIL/uL (4.2-6.2); RED CELL DISTRIBUTION WIDTH 19.8 % (9.0-15.0); WHITE BLOOD COUNT (AUTO) 4.8 K/uL (4.8-10.8)
[2021-07-07] MEDS: PANTOPRAZOLE SODIUM 40 MG/VIAL (PROTONIX) IVP SCH (09:32)
[2021-07-07] MEDS: ENOXAPARIN SODIUM 40 MG/0.4 ML SYRINGE SUBCUT SCH (09:32)
[2021-07-07] MEDS: hydrALAZINE HCL 25 MG TABLET PO SCH (09:33)
[2021-07-07] MEDS: MEPRON PO SCH ×2 (09:33→18:28)
[2021-07-07] MEDS: GABAPENTIN 300 MG CAPSULE PO SCH ×2 (09:33→23:22)
[2021-07-07] MEDS: CARVEDILOL 12.5 MG TABLET (COREG) PO SCH ×2 (09:33→23:22)
[2021-07-07] MEDS: ATORVASTATIN 20 MG TABLET PO SCH (09:34)
[2021-07-07] MEDS: metFORMIN HCL 500 MG TABLET PO SCH ×2 (09:34→18:28)
[2021-07-07 12:44] VITALS: BP_SYST 134
[2021-07-07] MEDS ORDERED: EPOETIN ALFA-EPBX 20,000 UNITS/ML VIAL SUBCUT ONE (13:00)
[2021-07-07 18:01] VITALS: BP_SYST 132
[2021-07-07 20:00] VITALS: BP_SYST 148
[2021-07-08] VITALS: BP_SYST 136; BP_SYST 139
[2021-07-08] MEDS: PANTOPRAZOLE SODIUM 40 MG/VIAL (PROTONIX) IVP SCH ×3 (01:16→23:09)
[2021-07-08] MEDS: INSULIN REGULAR, HUMAN 100 UNITS/ML, 10 ML VIAL (humuLIN R) SUBCUT PRN ×3 (07:00→17:17)
[2021-07-08 07:24] LABS: EOSINOPHILS # (AUTO) 0.1 K/uL (0.0-0.4); EOSINOPHILS % (AUTO) 2.7 % (0.0-4.0); HEMATOCRIT 27.7 % (36-48); HEMOGLOBIN 9.5 g/dL (12.0-16.0); LYMPHOCYTES # (AUTO) 1.2 K/uL (1.0-5.5); LYMPHOCYTES % (AUTO) 27.6 % (20.5-51.5); MEAN CORPUSCULAR HEMOGLOBIN 29 pg (27-31); MEAN CORPUSCULAR HGB CONC 34 % (32-36); MEAN CORPUSCULAR VOLUME 85 fL (79.0-98.0); MONOCYTES # (AUTO) 0.5 K/uL (0.0-1.0); MONOCYTES % (AUTO) 10.7 % (1.7-9.3); NEUTROPHILS # (AUTO) 2.5 K/uL (1.8-7.7); PLATELET COUNT (AUTO) 257 K/uL (130-430); RED BLOOD CELL COUNT(AUTO) 3.28 MIL/uL (4.2-6.2); RED CELL DISTRIBUTION WIDTH 20.1 % (9.0-15.0); WHITE BLOOD COUNT (AUTO) 4.2 K/uL (4.8-10.8)
[2021-07-08 08:09] LABS: ANION GAP 7 (5-15); CHLORIDE 98 mmol/L (98-107); CREATININE 1.06 mg/dL (0.55-1.30); GLUCOSE 170 mg/dL (70-99); POTASSIUM 4.6 mmol/L (3.5-5.1); SODIUM SERUM 132 mmol/L (136-145); UREA NITROGEN, BLOOD 22 mg/dL (8-21)
[2021-07-08 09:36] VITALS: BP_SYST 157
[2021-07-08] MEDS: hydrALAZINE HCL 25 MG TABLET PO SCH (09:39)
[2021-07-08] MEDS: ATORVASTATIN 20 MG TABLET PO SCH (09:40)
[2021-07-08] MEDS: CARVEDILOL 12.5 MG TABLET (COREG) PO SCH ×2 (09:40→23:08)
[2021-07-08] MEDS: GABAPENTIN 300 MG CAPSULE PO SCH ×2 (09:41→23:07)
[2021-07-08] MEDS: ENOXAPARIN SODIUM 40 MG/0.4 ML SYRINGE SUBCUT SCH (09:41)
[2021-07-08] MEDS: metFORMIN HCL 500 MG TABLET PO SCH ×2 (09:42→17:15)
[2021-07-08] MEDS: MEPRON PO SCH ×2 (09:45→17:15)
[2021-07-08 16:00] VITALS: BP_SYST 130
[2021-07-08] MEDS ORDERED: CALCIUM CARBONATE/MAG HYDROX 1 TAB.CHEW PO PRN (17:00)
[2021-07-08] MEDS ORDERED: MAG-AL HYDROX/SIMETH 30 ML UDC ONE (17:13)
[2021-07-08 20:10] VITALS: BP_SYST 146
[2021-07-08] MEDS: MAG-AL HYDROX/SIMETH 30 ML UDC PO PRN (23:29)
[2021-07-09 00:10] VITALS: BP_SYST 121
[2021-07-09] MEDS: MAG-AL HYDROX/SIMETH 30 ML UDC PO PRN ×3 (06:14→17:03)
[2021-07-09] MEDS: INSULIN REGULAR, HUMAN 100 UNITS/ML, 10 ML VIAL (humuLIN R) SUBCUT PRN ×3 (06:21→17:02)
[2021-07-09 08:00] VITALS: BP_SYST 148
[2021-07-09] MEDS: metFORMIN HCL 500 MG TABLET PO SCH ×2 (08:00→17:02)
[2021-07-09] MEDS: MEPRON PO SCH ×2 (08:00→17:02)
[2021-07-09] MEDS: ENOXAPARIN SODIUM 40 MG/0.4 ML SYRINGE SUBCUT SCH (09:25)
[2021-07-09] MEDS: hydrALAZINE HCL 25 MG TABLET PO SCH (09:26)
[2021-07-09] MEDS: CARVEDILOL 12.5 MG TABLET (COREG) PO SCH (09:27)
[2021-07-09] MEDS: GABAPENTIN 300 MG CAPSULE PO SCH (09:27)
[2021-07-09] MEDS: ATORVASTATIN 20 MG TABLET PO SCH (09:27)
[2021-07-09] MEDS: PANTOPRAZOLE SODIUM 40 MG/VIAL (PROTONIX) IVP SCH (09:30)
[2021-07-09 16:00] VITALS: BP_SYST 152
[2021-07-09 17:17] VITALS: BP_SYST 98
[2021-07-09] MEDS ORDERED: predniSONE 20 MG TABLET PO SCH (21:00)
== END 2021-07-09 18:45 | disposition home or self-care (01) | DRG 811 ==
LOC: SMU 13:43
PROVIDERS: ADMIT Internal Medicine; ATTEND Internal Medicine
DX: D64.9 Anemia, unspecified (principal); J96.00 Acute respiratory failure, unspecified whether with hypoxia or hypercapnia; J18.9 Pneumonia, unspecified organism; D84.9 Immunodeficiency, unspecified; C82.90 Follicular lymphoma, unspecified, unspecified site; N17.9 Acute kidney failure, unspecified; E11.9 Type 2 diabetes mellitus without complications; E78.5 Hyperlipidemia, unspecified; I10 Essential (primary) hypertension; Z20.822 Contact with and (suspected) exposure to COVID-19; E66.9 Obesity, unspecified; T36.8X5A Adverse effect of other systemic antibiotics, initial encounter; I25.10 Atherosclerotic heart disease of native coronary artery without angina pectoris; Z88.0 Allergy status to penicillin; Z87.11 Personal history of peptic ulcer disease; Z90.49 Acquired absence of other specified parts of digestive tract; Z92.21 Personal history of antineoplastic chemotherapy; Z95.5 Presence of coronary angioplasty implant and graft; Z86.73 Personal history of transient ischemic attack (TIA), and cerebral infarction without residual deficits; Z68.29 Body mass index [BMI] 29.0-29.9, adult; Y92.89 Other specified places as the place of occurrence of the external cause
CPT/HCPCS: 36415; 36600; 71045; 71275; 76376; 76770; 80048; 80053; 81003; 82272; 82607; 82728; 82746; 82803-TC; 82962; 83036; 83540; 83550; 83615; 83880; 84443; 85025; 85044; 85610-TC; 85651-TC; 85730-TC; 86480; 86694; 86695; 86696; 86710; 86738; 86886; 86900; 86901; 87070-TC; 87081; 87205-TC; 87449; 87497; 93306; 94010; C9113; J0456; J0696; J1650; J1815; J7050; J7060; Q5106; Q9967